=== PATIENT | male | born 1975 | race American Indian/Alaskan Native ===

== ENCOUNTER 2018-01-13 13:57 | Emergency (ER) | payer SELFPAY ==
[2018-01-13] MEDS ORDERED: FUL-GLO OP ONE (17:01)
[2018-01-13] MEDS ORDERED: TETRACAINE 0.5% OU ONE (17:02)
--- NOTE | 2018-01-13 17:06 | Emergency Department Report ---
Eye Injury/Foreign Body - HPI Eye Location: Left Severity: Moderate Tetanus Status: Unknown Eye Symptoms: Eye Pain: Yes, Blurred Vision: No, Eye Redness: Yes, Grinding/ Hammering Metal: No, Contact Lens Use: Yes, Recalls Injury: Yes, Photophobia: No Other History: This is a 42-year-old -[place] male who presents with redness to left eye for 1 day. Patient states he wears contacts and felt pain to left eye last night while at work. Patient states he applied several drops of clear eye drops with no improvement of redness or pain while at work. He took contacts out when he arrived home around 0130 this morning. Patient states he has worn his contacts for several months which they are only prescribed for 30 days. He is now complaining of redness, burning sensation, to left eye. Patient worse pain is continuous and 4 out of 10 pain scale and aggravated by light. Patient denies visual changes, headache, and swelling. <RAMSEYLYN NAVAISHA MARY KAY - Last Filed: 01/13/18 17:58> ED Review of Systems ROS: Stated complaint: LEFT EYE SWELLING Other details as noted in HPI Constitutional: denies: chills, fever Eyes: eye pain (left eye), eye discharge (left eye). denies: vision change ENT: denies: ear pain, throat pain, dental pain, hearing loss, epistaxis, congestion Respiratory: denies: cough, shortness of breath, wheezing Cardiovascular: denies: chest pain, palpitations Gastrointestinal: denies: abdominal pain, nausea, diarrhea Neurological: denies: headache, weakness, numbness, paresthesias Psychiatric: denies: anxiety, depression <QUINCY RAMSEYGILMAR - Last Filed: 01/13/18 17:58> ROS: Stated complaint: LEFT EYE SWELLING Other details as noted in HPI <ODILIA BRAR - Last Filed: 01/14/18 09:22> ED Past Medical Hx - Past Medical History Previous Medical History?: Yes Additional medical history: heart murmur - Surgical History Past Surgical History?: No - Social History Smoking Status: Current Every Day Smoker <QUINCY RAMSEYAdela - Last Filed: 01/13/18 17:58> <ODILIA BRAR - Last Filed: 01/14/18 09:22> - Medications Home Medications: Home Medications Medication Instructions Recorded Confirmed Last Taken Type Cipro/Dexameth 0.3/0.1% [Ciprodex 4 drops OT QID 4 Days #1 bottle 01/13/18 Unknown Rx [facility]] Polymyxin B Sulf/Trimethoprim 2 drops OS QID #1 drops 01/14/18 Unknown Rx [Polytrim Eye Drops] Eye Injury Exam - Exam General: Vital signs noted. No distress. Alert and acting appropriately. - Visual Acuity Left Eye Exam: Left Injection, Left Mucous Discharge, Left Fluorescein Uptake, Left Fluorescein Uptake (slit lamp), Both EOMI, Neither Chemosis, Neither Abnormal Pupil, Neither Eye Foreign Body, Neither Lid Foreign Body, Neither Purulent Discharge, Neither Cell/Flare (slit lamp), Neither Corneal Edema, Neither Photophobia <QUINCY RAMSEY - Last Filed: 01/13/18 17:58> - Exam General: Vital signs noted. No distress. Alert and acting appropriately. <ODILIA BRAR - Last Filed: 01/14/18 09:22> ED Course Vital Signs 01/13/18 14:18 Temperature 99 F Pulse Rate 79 Respiratory 18 Rate Blood Pressure 146/92 O2 Sat by Pulse 100 Oximetry <QUINCY RAMSEY - Last Filed: 01/13/18 17:58> Vital Signs 01/13/18 01/13/18 14:18 18:57 Temperature 99 F Pulse Rate 79 86 Respiratory 18 18 Rate Blood Pressure 146/92 Blood Pressure 147/75 [Right] O2 Sat by Pulse 100 99 Oximetry <ODILIA BRAR - Last Filed: 01/14/18 09:22> ED Medical Decision Making - Medical Decision Making This is a 42 y.o. male that presents with redness and pain to left eye since last night. Patient is stable and was examined by me. Vitals stable. Patient wear contact lenses. Left eye stained and evaluated with wylie lamp. Corneal abrasion to left iris on exam. Start ciprofloxacin gtts and follow-up with ophthalmology in 24-48 hours. Take ibuprofen or Tylenol for pain. Discussed plan with patient and agreed to plan. No further questions noted by the patient. Discharged home in stable condition. Follow up with PCP in 2-3 days. <QUINCY RAMSEY - Last Filed: 01/13/18 17:58> - Medical Decision Making Patient brought to me stating that the patient is unable to fill Ciprodex due to expense of it. I did have the prescription and will discard Ciprodex. I did provide patient with Polytrim and patient also received a good RX card. <ARANZAODILIA BOWERS - Last Filed: 01/14/18 09:22> Critical care attestation.: If time is entered above; I have spent that time in minutes in the direct care of this critically ill patient, excluding procedure time. <QUINCY RAMSEYGILMAR - Last Filed: 01/13/18 17:58> Critical care attestation.: If time is entered above; I have spent that time in minutes in the direct care of this critically ill patient, excluding procedure time. <ODILIA BRAR - Last Filed: 01/14/18 09:22> ED Disposition Is pt being admited?: No Does the pt Need Aspirin: No Time of Disposition: 18:33 <QUINCY RAMSEYGILMAR - Last Filed: 01/13/18 17:58> <ARANZAELISSAODILIA - Last Filed: 01/14/18 09:22> Clinical Impression: Corneal abrasion of left eye due to contact lens Disposition: DC-01 TO HOME OR SELFCARE Condition: Stable Instructions: Corneal Abrasion (ED) Additional Instructions: Follow up with ophthalmology in 24-48 hours. Complete full course of antibiotics as prescribed. Prescriptions: Cipro/Dexameth 0.3/0.1% [Ciprodex OTIC] 4 drops OT QID 4 Days #1 bottle Polymyxin B Sulf/Trimethoprim [Polytrim Eye Drops] 2 drops OS QID #1 drops Referrals: YESSICA WONG MD [Staff Physician] - 3-5 Days [facility] [Provider Group] - 3-5 Days Forms: Work/School Release Form(ED) Print Language: ANGUILLAN
[2018-01-13 18:59] VITALS: BP 147/75
== END 2018-01-13 18:40 | disposition home or self-care (01) ==
LOC: ED 13:57
DX: H18.822 Corneal disorder due to contact lens, left eye (principal); F17.200 Nicotine dependence, unspecified, uncomplicated
CPT/HCPCS: 99283

== ENCOUNTER 2022-01-05 12:17 | Emergency (ER) | payer SELFPAY | END 2022-01-05 13:00 | disposition left against medical advice (07) | LOC: ED 12:17 | DX: R07.82 Intercostal pain (principal); Z53.21 Procedure and treatment not carried out due to patient leaving prior to being seen by health care provider ==